=== PATIENT | female | born 1975 | race Caucasian/White ===

== ENCOUNTER 2019-05-11 16:22 | Emergency (ER) | payer OTHER ==
[~2019-05-11] VITALS: Ht 167.6 cm; Wt 69.1 kg
[2019-05-11 16:48] VITALS: BP 135/76; TEMP 99
[2019-05-11] MEDS ORDERED: PREDNISONE20 MG PO (17:22)
[2019-05-11 17:50] VITALS: PULSE 65
== END 2019-05-11 18:00 | disposition home or self-care (01) ==
LOC: COL.ER 16:22
DX: S40.862A Insect bite (nonvenomous) of left upper arm, initial encounter (principal); S40.861A Insect bite (nonvenomous) of right upper arm, initial encounter; L25.5 Unspecified contact dermatitis due to plants, except food; W57.XXXA Bitten or stung by nonvenomous insect and other nonvenomous arthropods, initial encounter
CPT/HCPCS: J7512